=== PATIENT | male | born 1955 | race Caucasian/White ===

== ENCOUNTER → 2020-05-19 | Outpatient (CLI) | payer OTHER | LOC: SJCVCIMAG 13:13 → SJCVC 13:13 | PROVIDERS: ATTEND Internal Medicine Cardiovascular Disease | DX: I34.0 Nonrheumatic mitral (valve) insufficiency (principal); R94.31 Abnormal electrocardiogram [ECG] [EKG]; I25.10 Atherosclerotic heart disease of native coronary artery without angina pectoris; I25.2 Old myocardial infarction; I11.9 Hypertensive heart disease without heart failure; E78.5 Hyperlipidemia, unspecified; E11.9 Type 2 diabetes mellitus without complications; Z79.899 Other long term (current) drug therapy ==

== ENCOUNTER → 2020-10-06 | Outpatient (CLI) | payer OTHER ==
[~2020-10-06] MED LIST: ASA81BEC PO; BYSTOLIC10 MG PO; DEMADEX20 MG PO; EFFIENT10 MG PO; FLOMAX0.4 MG PO; LANTUS SUBQ; LOSARTAN POTAS100 MG PO; ROSUVASTATIN CA40 MG PO
== END ==
LOC: SJCVC 08:14 → SJCVCIMAG 08:33
PROVIDERS: ATTEND Internal Medicine Cardiovascular Disease
DX: I34.0 Nonrheumatic mitral (valve) insufficiency (principal); I25.10 Atherosclerotic heart disease of native coronary artery without angina pectoris; I25.2 Old myocardial infarction; I10 Essential (primary) hypertension; E78.5 Hyperlipidemia, unspecified; E11.9 Type 2 diabetes mellitus without complications; M10.9 Gout, unspecified; Z98.61 Coronary angioplasty status; Z95.828 Presence of other vascular implants and grafts; Z79.4 Long term (current) use of insulin; Z79.82 Long term (current) use of aspirin; Z79.899 Other long term (current) drug therapy; Z82.49 Family history of ischemic heart disease and other diseases of the circulatory system

== ENCOUNTER → 2020-10-08 | Outpatient (CLI) | payer OTHER ==
[~2020-10-08] VITALS: Ht 182.9 cm; Wt 108.9 kg
[2020-10-08 08:37] VITALS: BP 163/80
[2020-10-08 08:57] LABS: HEMATOCRIT 37.1 % (42.0-52.0); HEMOGLOBIN 12.4 gm/dL (14.0-18.0); MCH 30.2 pg (26.0-34.0); MCHC 33.3 g/dL (28.0-37.0); MCV 90.7 fL (80.0-100.0); RBC 4.09 mil/uL (4.50-6.00); RDW 13.3 % (10.5-14.5); WBC 6.1 thou/uL (4.0-11.0)
[2020-10-08 09:05] LABS: CALCIUM 9.2 mg/dL (8.5-10.1); POTASSIUM 3.8 mmol/L (3.5-5.1)
--- NOTE | 2020-10-09 17:22 | CATHLAB ---
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 A Right Heart Catheterization was performed with a 7 Fr. [facility] catheter and pressure were recorded. Cardiac outputs were obtained by the Thermal Dilution method. A PINNACLE 6FR Sheath #[id number] sheath was inserted into the RFA^. Coronary angiography was performed using coronary diagnostic catheters. The right coronary system was accessed and visualized with a JR4 catheter. The left coronary system was accessed and visualized with a JL4 catheter. The left ventricle was accessed and visualized with a PIGTAIL catheter. Left ventriculogram was performed in 30 degree projection. An aortogram of the abdominal aorta was performed. Closure device was deployed with a Fr MYNXGRIP 6/7F #[id number]. The patient tolerated the procedure well and there were no complications associated with the procedure. There was no hematoma. Intraoperative Conscious Sedation Sedation start time: 10:39 Case end Time: 11:[address] [address] INVASIVE PROCEDURE REPORT Name: JOSE TERRY Malathi Room #: [facility]#: [id number] Admission: 10/08/20 Attend Phys: Osbaldo Kelly, Discharge: Date of : 51 Report #: [id number] Fentanyl 100 mcg Versed 2.0 mg Fluoro Time: 3.50 minutes Dose: DAP 15667.80 cGycm2 1344 mGy Contrast Type and Amount: Omnipaque 140 ml Hemodynamics The right atrial mean pressure is 17 mmHg. The right ventricular pressure is 51/12 mmHg. The pulmonary artery pressure is 49/23 mmHg with a mean of 34 mmHg. The mean pulmonary capillary wedge pressure is 26 mmHg. The aortic pressure is 154/65 mmHg with a mean of mmHg. The left ventricular pressure is 165/10 mmHg with a mean of mmHg. The left ventricular end diastolic pressure is 28 mmHg. The cardiac output using thermo method is 5.30 L/min. The cardiac index using thermo method is 2.30 L/min/m2. Conclusion #1. Catheterization with cardiac output by thermodilution. See above hemodynamics. #2 mildly dilated left ventricle with moderate hypokinesis of the anterior apical wall EF 4045% range. #3 abdominal aortogram revealing no evidence of aneurysmal formation brisk distal flow renal arteries appear to be widely patent. #4 left main mildly calcified mildly disease giving rise to LAD and circumflex. #5 LAD appears to have 2 proximal stents previously placed with mild in-stent restenosis and mild distal disease a 50% mid vessel LAD. #6 diagonal branch also mildly diseased with previously placed stent with mild restenosis. #7 circumflex OM nondominant with mild disease a moderately large single OM branch. #8 large dominant mildly ectatic right coronary artery 3040% proximal 50% mid vessel lesion with a possible old cleft lesion a distal trifurcation stenosis in the 75% range supplying some relatively small PDA MICHELLE diffusely diseased branches. Conditions and plan: Aggressive risk factor modification. Salt and fluid restriction. Weight loss. Distal RCA could intervene at a later date if indicated. We will follow-up closely and nuclear stress testing in probable 6 months. Have discussed with Dr. Arora <ELECTRONICALLY SIGNED> By: Osbaldo Kelly MD, FACC 10/09/201721 21 21 Osbaldo Kelly MD, FACC /INF
== END | disposition home or self-care (01) ==
LOC: CATH 07:54
PROVIDERS: ATTEND Internal Medicine Cardiovascular Disease
DX: I25.10 Atherosclerotic heart disease of native coronary artery without angina pectoris (principal); I10 Essential (primary) hypertension; E11.9 Type 2 diabetes mellitus without complications; I25.2 Old myocardial infarction; E78.5 Hyperlipidemia, unspecified; M10.9 Gout, unspecified; Z98.890 Other specified postprocedural states; Z79.899 Other long term (current) drug therapy; Z79.4 Long term (current) use of insulin; Z88.6 Allergy status to analgesic agent; Z95.5 Presence of coronary angioplasty implant and graft

== ENCOUNTER → 2020-11-11 | Outpatient (CLI) | payer OTHER | LOC: SJCVC 16:23 | PROVIDERS: ATTEND Internal Medicine Cardiovascular Disease | DX: R94.31 Abnormal electrocardiogram [ECG] [EKG] (principal); I25.10 Atherosclerotic heart disease of native coronary artery without angina pectoris; I11.0 Hypertensive heart disease with heart failure; E11.9 Type 2 diabetes mellitus without complications; I42.9 Cardiomyopathy, unspecified; I50.43 Acute on chronic combined systolic (congestive) and diastolic (congestive) heart failure; E78.5 Hyperlipidemia, unspecified; I25.2 Old myocardial infarction; Z86.16 Personal history of COVID-19; M10.9 Gout, unspecified; Z79.899 Other long term (current) drug therapy; Z79.82 Long term (current) use of aspirin ==

== ENCOUNTER → 2021-06-12 | Outpatient (CLI) | payer OTHER | LOC: SJCVCIMAG 07:24 | PROVIDERS: ATTEND Internal Medicine Cardiovascular Disease | DX: U07.1 COVID-19 (principal); I08.1 Rheumatic disorders of both mitral and tricuspid valves; I25.9 Chronic ischemic heart disease, unspecified; I49.3 Ventricular premature depolarization; I25.10 Atherosclerotic heart disease of native coronary artery without angina pectoris; E78.5 Hyperlipidemia, unspecified; I25.2 Old myocardial infarction; I11.0 Hypertensive heart disease with heart failure; I50.43 Acute on chronic combined systolic (congestive) and diastolic (congestive) heart failure; I42.9 Cardiomyopathy, unspecified; E11.9 Type 2 diabetes mellitus without complications; Z79.82 Long term (current) use of aspirin; Z79.899 Other long term (current) drug therapy ==